=== PATIENT | male | born 1945 | race African-American/Black ===

== ENCOUNTER 2018-07-10 12:18 | Outpatient (CLI) | payer MEDICARE, MEDICAID ==
--- NOTE | 2018-07-10 13:59 | RAD ---
TWO VIEWS OF THE CHEST: DATE: 07/10/2018. COMPARISON: None. HISTORY: Diaphoresis. FINDINGS: There is no pneumothorax or pleural fluid. There is no focal consolidation or alveolar edema. Heart and mediastinal contours appear unremarkable. Mild nonspecific perihilar interstitial prominence no galindo. IMPRESSION: No focal consolidation or alveolar edema. POS: [facility]
== END 2018-07-10 12:19 | disposition home or self-care (01) ==
LOC: BICRAD 12:18
PROVIDERS: ATTEND Specialist
DX: J44.0 Chronic obstructive pulmonary disease with (acute) lower respiratory infection (principal)
CPT/HCPCS: 71046

== ENCOUNTER 2022-04-25 14:55 | Inpatient (IN) | payer OTHER ==
[2022-04-25 15:17] LABS: #Lymphocytes 1.3 thou/uL (1.20-3.40); #Monocytes 1.2 thou/uL (0.11-0.59); #Neutrophils 7.1 thou/uL (1.40-6.50); %Basophils 0.1 % (0.0-1.0); %Eosinophils 0.3 % (0.0-10.0); %Lymphocytes 13.9 % (21.0-51.0); %Neutrophils 73.7 % (42.0-75.0); Hemoglobin 12.7 g/dL (14.0-18.0); Mean Corpuscular HGB CONC 34.3 g/dL (32.0-36.0); Mean Corpuscular Hemoglobin 32.8 pg (27.0-31.0); Mean Corpuscular Volume 95.7 fL (78.0-98.0); Mean Platelet Volume 7.1 fL (7.4-10.4); Platelet Count 257 thou/uL (130-400); RBC Distribution Width 11.8 % (11.5-14.5); Red Blood Cell (RBC) Count 3.87 mill/uL (4.70-6.10); White Blood Cell (WBC) Count 9.6 thou/uL (4.8-10.8)
[2022-04-25 16:33] LABS: Albumin 4.1 g/dL (3.4-4.8)
[2022-04-25 16:34] LABS: Chloride 95 mmol/L (98-107); Potassium 3.1 mmol/L (3.5-5.1)
[2022-04-25 16:35] LABS: Calcium 9.1 mg/dL (7.8-10.44); Sodium 129 mmol/L (136-145)
[2022-04-25 16:36] LABS: Globulin 3.1 g/dL (2.4-3.5); Protein, Total 7.2 g/dL (5.8-8.1)
[2022-04-25 16:37] LABS: Anion Gap 16 mmol/L (10-20); Carbon Dioxide 21 mmol/L (23-31)
[2022-04-25 16:38] LABS: Bilirubin, Total 1.4 mg/dL (0.2-1.2)
[2022-04-25 16:39] LABS: Alkaline Phosphatase 66 U/L (40-110)
[2022-04-25 16:40] LABS: BUN (Urea Nitrogen) 11 mg/dL (8.4-25.7); Calc. Creatinine Clearance 0 mL/min (70-130); Estimated GFR 44
[2022-04-25 16:41] LABS: AST (SGOT) 23 U/L (5-34)
[2022-04-25 16:42] LABS: ALT (SGPT) 10 U/L (8-55)
[2022-04-25 16:52] LABS: Glucose 47 mg/dL (83-110)
[2022-04-25] MEDS ORDERED: Dextrose 50% Abboject 50 ML SYRINGE ONE (16:59)
[2022-04-25 19:09] LABS: Bilirubin Negative (Negative); Blood, Urine Negative (Negative); Clarity Clear (Clear); Glucose, Urine (Dipstick) 150 mg/dL (Negative); Ketone, Urine Negative (Negative); Leukocyte Negative Leu/uL (Negative); Nitrite Negative (Negative); Protein, Urine (Dipstick) Negative (Neg-Trace); Specific Gravity, Urine 1.009 (1.002-1.036); Urobilinogen Normal mg/dL (Less than 2); pH, Urine 5.5 (5.0-9.0)
[2022-04-25 23:13] VITALS: BMI 27.5
[2022-04-26] MEDS ORDERED: Dextrose 5% in Water 1,000 ML IV SCH (00:15)
[2022-04-26] MEDS ORDERED: Dextrose 5% in Water 1,000 ML IV PRN (06:30)
[2022-04-26] MEDS ORDERED: Dextrose 50% Abboject 50 ML SYRINGE IVP PRN (06:30)
[2022-04-26] MEDS ORDERED: Insulin Regular 300 UNITS/3 ML VIAL SC PRN ×2 (06:30)
[2022-04-26] MEDS ORDERED: Insulin Regular 300 UNITS/3 ML VIAL ONE (06:36)
[2022-04-26] MEDS ORDERED: Ondansetron PF 4 MG/2 ML Vial IVP PRN (08:10)
[2022-04-26 08:25] LABS: #Eosinphils 0.2 thou/uL (0.0-0.7); #Lymphocytes 1.1 thou/uL (1.20-3.40); #Monocytes 1.2 thou/uL (0.11-0.59); #Neutrophils 6.3 thou/uL (1.40-6.50); %Basophils 0.2 % (0.0-1.0); %Eosinophils 2.4 % (0.0-10.0); %Monocytes 13.1 % (0.0-10.0); %Neutrophils 71.4 % (42.0-75.0); Hemoglobin 12.2 g/dL (14.0-18.0); Mean Corpuscular HGB CONC 33.6 g/dL (32.0-36.0); Mean Corpuscular Hemoglobin 32.5 pg (27.0-31.0); Mean Corpuscular Volume 96.8 fL (78.0-98.0); Mean Platelet Volume 6.8 fL (7.4-10.4); Platelet Count 225 thou/uL (130-400); RBC Distribution Width 11.6 % (11.5-14.5); Red Blood Cell (RBC) Count 3.76 mill/uL (4.70-6.10); White Blood Cell (WBC) Count 8.8 thou/uL (4.8-10.8)
[2022-04-26 08:45] LABS: Anion Gap 13 mmol/L (10-20); BUN (Urea Nitrogen) 10 mg/dL (8.4-25.7); Calc. Creatinine Clearance 59 mL/min (70-130); Carbon Dioxide 25 mmol/L (23-31); Chloride 95 mmol/L (98-107); Estimated GFR 57; Glucose 164 mg/dL (83-110); Potassium 3.2 mmol/L (3.5-5.1); Sodium 130 mmol/L (136-145)
[2022-04-26] MEDS: D5 0.9% NS w/ 20 mEq KCl 1,000 ML IV SCH ×3 (09:06→21:08)
[2022-04-26] MEDS ORDERED: Iopamidol 370 76% 100 ML VIAL ONE (13:56)
[2022-04-26] MEDS ORDERED: Acetaminophen 325 MG TAB PO PRN (15:44)
[2022-04-26 18:36] LABS: Hemoglobin A1c 4.6 % (4.0-6.0)
[2022-04-27 06:01] LABS: #Eosinphils 0.2 thou/uL (0.0-0.7); #Lymphocytes 1.3 thou/uL (1.20-3.40); #Neutrophils 6.1 thou/uL (1.40-6.50); %Basophils 0.3 % (0.0-1.0); %Eosinophils 2.8 % (0.0-10.0); %Lymphocytes 14.9 % (21.0-51.0); %Monocytes 11.9 % (0.0-10.0); %Neutrophils 70.1 % (42.0-75.0); Hemoglobin 11.4 g/dL (14.0-18.0); Mean Corpuscular HGB CONC 33.2 g/dL (32.0-36.0); Mean Corpuscular Hemoglobin 32.7 pg (27.0-31.0); Mean Corpuscular Volume 98.3 fL (78.0-98.0); Mean Platelet Volume 7.4 fL (7.4-10.4); Platelet Count 233 thou/uL (130-400); RBC Distribution Width 11.6 % (11.5-14.5); Red Blood Cell (RBC) Count 3.48 mill/uL (4.70-6.10); White Blood Cell (WBC) Count 8.6 thou/uL (4.8-10.8)
[2022-04-27 06:23] LABS: Anion Gap 11 mmol/L (10-20); BUN (Urea Nitrogen) 6 mg/dL (8.4-25.7); Calc. Creatinine Clearance 68 mL/min (70-130); Calcium 8.5 mg/dL (7.8-10.44); Carbon Dioxide 25 mmol/L (23-31); Chloride 105 mmol/L (98-107); Estimated GFR 67; Glucose 145 mg/dL (83-110); Potassium 3.5 mmol/L (3.5-5.1); Sodium 137 mmol/L (136-145)
[2022-04-27] MEDS: D5 0.9% NS w/ 20 mEq KCl 1,000 ML IV SCH ×3 (11:17→23:07)
[2022-04-28 12:03] VITALS: BP 137/86; TEMP 98.4
[2022-04-28] MEDS: D5 0.9% NS w/ 20 mEq KCl 1,000 ML IV SCH (12:13)
== END 2022-04-28 13:40 | disposition home or self-care (01) | DRG 178 ==
LOC: ERS 14:55 → MSONC 20:39 → OBSVTOIN 04-26 08:22 → SURG B 04-28 01:37
PROVIDERS: ADMIT Specialist; ATTEND Specialist
PROC: 8E0ZXY6 Isolation (ICD-10-PCS; principal; 2022-04-26)
DX: U07.1 COVID-19 (principal); E87.1 Hypo-osmolality and hyponatremia; E78.5 Hyperlipidemia, unspecified; Z21 Asymptomatic human immunodeficiency virus [HIV] infection status; I10 Essential (primary) hypertension; E11.9 Type 2 diabetes mellitus without complications; F41.9 Anxiety disorder, unspecified; N40.0 Benign prostatic hyperplasia without lower urinary tract symptoms; E11.649 Type 2 diabetes mellitus with hypoglycemia without coma; N40.1 Benign prostatic hyperplasia with lower urinary tract symptoms; R33.8 Other retention of urine; N31.9 Neuromuscular dysfunction of bladder, unspecified; K63.89 Other specified diseases of intestine; N28.9 Disorder of kidney and ureter, unspecified; Z28.21 Immunization not carried out because of patient refusal
CPT/HCPCS: 36415; 36416; 70450; 71045; 74176; 74177; 80048; 80053; 81003; 83036; 84484; 85025; 93005; 96374; 96376; G0378; J1815; J3480; J7070; J7999; Q9967; U0003; U0005

== ENCOUNTER 2022-06-12 11:31 | Inpatient (IN) | payer OTHER ==
[2022-06-12 12:47] LABS: #Eosinphils 0.1 thou/uL (0.0-0.7); #Lymphocytes 1.1 thou/uL (1.20-3.40); #Monocytes 0.7 thou/uL (0.11-0.59); #Neutrophils 5.8 thou/uL (1.40-6.50); %Basophils 0.1 % (0.0-1.0); %Lymphocytes 14.4 % (21.0-51.0); %Monocytes 8.5 % (0.0-10.0); Hemoglobin 12.2 g/dL (14.0-18.0); Mean Corpuscular HGB CONC 31.5 g/dL (32.0-36.0); Mean Corpuscular Hemoglobin 31.1 pg (27.0-31.0); Mean Corpuscular Volume 98.7 fL (78.0-98.0); Mean Platelet Volume 7.4 fL (7.4-10.4); Platelet Count 257 thou/uL (130-400); Red Blood Cell (RBC) Count 3.93 mill/uL (4.70-6.10); White Blood Cell (WBC) Count 7.7 thou/uL (4.8-10.8)
[2022-06-12 13:07] LABS: ALT (SGPT) Less than 7 U/L (8-55); AST (SGOT) 10 U/L (5-34); Albumin 3.7 g/dL (3.4-4.8); Alkaline Phosphatase 80 U/L (40-110); Anion Gap 13 mmol/L (10-20); BUN (Urea Nitrogen) 9 mg/dL (8.4-25.7); Bilirubin, Total 0.7 mg/dL (0.2-1.2); Calc. Creatinine Clearance 0 mL/min (70-130); Calcium 9.5 mg/dL (7.8-10.44); Carbon Dioxide 27 mmol/L (23-31); Estimated GFR 39; Globulin 3.9 g/dL (2.4-3.5); Glucose 106 mg/dL (83-110); Potassium 4.6 mmol/L (3.5-5.1); Protein, Total 7.6 g/dL (5.8-8.1)
[2022-06-12 13:25] LABS: Chloride 104 mmol/L (98-107); Sodium 139 mmol/L (136-145)
[2022-06-12] MEDS ORDERED: Magnevist 469MG/ML 20 ML VIAL ONE (15:03)
[2022-06-12 17:22] LABS: Bacteria/HPF 1+ HPF (None Seen); Bilirubin Negative (Negative); Blood, Urine Trace (Negative); Clarity Turbid (Clear); Glucose, Urine (Dipstick) Normal (Negative); Ketone, Urine 10 mg/dL (Negative); Leukocyte 250 Leu/uL (Negative); Nitrite 1+ (Negative); Protein, Urine (Dipstick) Negative (Neg-Trace); RBC/HPF 0-3 HPF (0-3); Squamous Epithelial 0-3 HPF (0-3); Urobilinogen Normal mg/dL (Less than 2)
[2022-06-12] MEDS ORDERED: Dextrose 50% Abboject 50 ML SYRINGE IVP PRN (18:30)
[2022-06-12] MEDS ORDERED: Insulin Regular 300 UNITS/3 ML VIAL SC PRN (18:30)
[2022-06-12] MEDS ORDERED: Dextrose 5% in Water 1,000 ML IV PRN (18:30)
[2022-06-12] MEDS: Terazosin HCl 5 MG CAP PO SCH (21:38)
[2022-06-12] MEDS: busPIRone HCl 10 MG TAB PO SCH (21:38)
[2022-06-12] MEDS: Sodium Chloride 0.9% 1,000 ML IV SCH (21:38)
[2022-06-12] MEDS: cefTRIAXone\\ROCEPHIN 2 GM in Sodium Chloride 0.9% 100 ML IVPB SCH (21:38)
[2022-06-12] MEDS: Rosuvastatin 20 MG TAB PO SCH (21:38)
[2022-06-13] MEDS: Sodium Chloride 0.9% 1,000 ML IV SCH ×4 (02:11→21:11)
[2022-06-13 07:23] LABS: #Eosinphils 0.2 thou/uL (0.0-0.7); #Lymphocytes 1.2 thou/uL (1.20-3.40); #Monocytes 0.8 thou/uL (0.11-0.59); %Basophils 0.5 % (0.0-1.0); %Eosinophils 3.7 % (0.0-10.0); %Lymphocytes 18.9 % (21.0-51.0); %Monocytes 12.2 % (0.0-10.0); %Neutrophils 64.8 % (42.0-75.0); Mean Corpuscular HGB CONC 31.6 g/dL (32.0-36.0); Mean Corpuscular Hemoglobin 30.8 pg (27.0-31.0); Mean Corpuscular Volume 97.6 fL (78.0-98.0); Mean Platelet Volume 7.2 fL (7.4-10.4); Platelet Count 225 thou/uL (130-400); Red Blood Cell (RBC) Count 3.57 mill/uL (4.70-6.10); White Blood Cell (WBC) Count 6.2 thou/uL (4.8-10.8)
[2022-06-13 07:28] LABS: Anion Gap 12 mmol/L (10-20); BUN (Urea Nitrogen) 9 mg/dL (8.4-25.7); Calc. Creatinine Clearance 60 mL/min (70-130); Calcium 8.8 mg/dL (7.8-10.44); Carbon Dioxide 22 mmol/L (23-31); Chloride 107 mmol/L (98-107); Estimated GFR 61; Glucose 87 mg/dL (83-110); Sodium 137 mmol/L (136-145)
[2022-06-13] MEDS ORDERED: Glimepiride 2 MG TAB PO SCH (07:30)
[2022-06-13] MEDS: busPIRone HCl 10 MG TAB PO SCH ×3 (08:41→21:10)
[2022-06-13] MEDS: Tamsulosin HCl 0.4 MG CAP PO SCH (08:41)
[2022-06-13 13:17] VITALS: BMI 26.2
[2022-06-13] MEDS ORDERED: FINERENONE 10 MG PO SCH (16:00)
[2022-06-13] MEDS ORDERED: BIKTARVY PO SCH (16:00)
[2022-06-13] MEDS: cefTRIAXone\\ROCEPHIN 2 GM in Sodium Chloride 0.9% 100 ML IVPB SCH (17:33)
[2022-06-13] MEDS: Terazosin HCl 5 MG CAP PO SCH (21:10)
[2022-06-13] MEDS: Rosuvastatin 20 MG TAB PO SCH (21:10)
[2022-06-13] MEDS: Acetaminophen 325 MG TAB PO PRN (21:15)
[2022-06-14 04:30] LABS: #Eosinphils 0.3 thou/uL (0.0-0.7); #Lymphocytes 2.2 thou/uL (1.20-3.40); #Monocytes 0.8 thou/uL (0.11-0.59); #Neutrophils 2.9 thou/uL (1.40-6.50); %Basophils 0.5 % (0.0-1.0); %Eosinophils 4.8 % (0.0-10.0); %Lymphocytes 35.7 % (21.0-51.0); %Monocytes 12.6 % (0.0-10.0); %Neutrophils 46.3 % (42.0-75.0); Hemoglobin 10.6 g/dL (14.0-18.0); Mean Corpuscular HGB CONC 32.7 g/dL (32.0-36.0); Mean Corpuscular Volume 97.9 fL (78.0-98.0); Mean Platelet Volume 7.5 fL (7.4-10.4); Platelet Count 234 thou/uL (130-400); Red Blood Cell (RBC) Count 3.33 mill/uL (4.70-6.10); White Blood Cell (WBC) Count 6.2 thou/uL (4.8-10.8)
[2022-06-14 05:26] LABS: Anion Gap 11 mmol/L (10-20); BUN (Urea Nitrogen) 8 mg/dL (8.4-25.7); Calc. Creatinine Clearance 57 mL/min (70-130); Calcium 8.5 mg/dL (7.8-10.44); Carbon Dioxide 24 mmol/L (23-31); Chloride 109 mmol/L (98-107); Estimated GFR 58; Glucose 87 mg/dL (83-110); Iron 38 ug/dL (65-175); Potassium 3.9 mmol/L (3.5-5.1); Sodium 140 mmol/L (136-145)
[2022-06-14] MEDS: FINERENONE 10 MG PO SCH (08:02)
[2022-06-14] MEDS: Tamsulosin HCl 0.4 MG CAP PO SCH (08:03)
[2022-06-14] MEDS: busPIRone HCl 10 MG TAB PO SCH ×3 (08:03→20:06)
[2022-06-14] MEDS: BIKTARVY PO SCH (08:03)
[2022-06-14] MEDS: Iron Polysaccharides Complex 150 MG CAP PO SCH (09:12)
[2022-06-14] MEDS: Sodium Chloride 0.9% 1,000 ML IV SCH ×3 (09:59→20:06)
[2022-06-14] MEDS: cefTRIAXone\\ROCEPHIN 2 GM in Sodium Chloride 0.9% 100 ML IVPB SCH (17:34)
[2022-06-14] MEDS: Terazosin HCl 5 MG CAP PO SCH (20:05)
[2022-06-14] MEDS: Rosuvastatin 20 MG TAB PO SCH (20:05)
[2022-06-14] MEDS: Acetaminophen 325 MG TAB PO PRN (20:06)
[2022-06-15] MEDS: busPIRone HCl 10 MG TAB PO SCH ×3 (08:29→20:40)
[2022-06-15] MEDS: Iron Polysaccharides Complex 150 MG CAP PO SCH (08:29)
[2022-06-15] MEDS: Tamsulosin HCl 0.4 MG CAP PO SCH (08:29)
[2022-06-15] MEDS: FINERENONE 10 MG PO SCH (08:32)
[2022-06-15] MEDS: BIKTARVY PO SCH (08:32)
[2022-06-15] MEDS ORDERED: FLU VACC QS2022-23(65YR UP)/PF 240 MCG/0.7 ML SYRINGE IM ONE (09:00)
[2022-06-15] MEDS: Sodium Chloride 0.9% 1,000 ML IV SCH ×3 (09:52→22:56)
[2022-06-15 20:36] VITALS: BP 162/87; TEMP 97.6
[2022-06-15] MEDS: Terazosin HCl 5 MG CAP PO SCH (20:41)
[2022-06-15] MEDS: Rosuvastatin 20 MG TAB PO SCH (20:41)
[2022-06-16] MEDS: Sodium Chloride 0.9% 1,000 ML IV SCH (02:06)
[2022-06-16] MEDS: Iron Polysaccharides Complex 150 MG CAP PO SCH (08:00)
[2022-06-16] MEDS: busPIRone HCl 10 MG TAB PO SCH (09:23)
[2022-06-16] MEDS: Tamsulosin HCl 0.4 MG CAP PO SCH (09:24)
[2022-06-16] MEDS: BIKTARVY PO SCH (09:25)
[2022-06-16] MEDS: FINERENONE 10 MG PO SCH (09:25)
== END 2022-06-16 11:05 | disposition home or self-care (01) | DRG 689 ==
LOC: ERS 11:31 → ERHOLD 15:46 → T4-B 19:52
PROVIDERS: ADMIT Specialist; ATTEND Specialist
DX: N39.0 Urinary tract infection, site not specified (principal); G93.41 Metabolic encephalopathy; N17.9 Acute kidney failure, unspecified; Z20.822 Contact with and (suspected) exposure to COVID-19; N40.0 Benign prostatic hyperplasia without lower urinary tract symptoms; E11.9 Type 2 diabetes mellitus without complications; E78.00 Pure hypercholesterolemia, unspecified; F41.9 Anxiety disorder, unspecified; I10 Essential (primary) hypertension; Z21 Asymptomatic human immunodeficiency virus [HIV] infection status; E86.0 Dehydration; Z79.84 Long term (current) use of oral hypoglycemic drugs; Z79.899 Other long term (current) drug therapy; Z91.14 Patient's other noncompliance with medication regimen
CPT/HCPCS: 36415; 36416; 70450; 70553; 80048; 80053; 81003; 81015; 82274; 82607; 83036; 83540; 84484; 85025; 87040; 87077; 87086; 87186; 93005; A9579; J0696; J3490; J7050; U0003; U0005

== ENCOUNTER 2022-06-21 19:30 | Inpatient (IN) | payer OTHER ==
[2022-06-21] MEDS ORDERED: CEFAZOLIN 2 GM VIAL ONE (20:34)
[2022-06-21] MEDS ORDERED: Octreotide Acetate 500 MCG/ML VIAL ONE (20:34)
[2022-06-21] MEDS ORDERED: Dextrose 50% Abboject 50 ML SYRINGE ONE (20:45)
[2022-06-21 21:26] LABS: Actual Bicarbonate (HCO3v) 25 mEq/L (22-28); Analyzer IN Cardio ER; Base Excess -1.3 mEq/L (-2.0 to +3.0); Calcium, Ionized (venous) 1.18 mmol/L (1.16-1.32); Chloride (VBG) 102 mmol/L (98-106); Hemoglobin (Hb) 11.8 g/dL (12.6-17.4); Potassium (VBG) 3.44 mmol/L (3.70-5.30); Sodium 134.3 mmol/L (133-146); pH (venous) 7.33 (7.32-7.43)
[2022-06-21 21:30] LABS: #Lymphocytes 0.7 thou/uL (1.20-3.40); #Monocytes 0.6 thou/uL (0.11-0.59); #Neutrophils 7.3 thou/uL (1.40-6.50); %Basophils 0.2 % (0.0-1.0); %Eosinophils 0.4 % (0.0-10.0); %Lymphocytes 7.7 % (21.0-51.0); %Monocytes 7.4 % (0.0-10.0); %Neutrophils 84.3 % (42.0-75.0); Hemoglobin 10.7 g/dL (14.0-18.0); Mean Corpuscular HGB CONC 32.5 g/dL (32.0-36.0); Mean Corpuscular Hemoglobin 31.7 pg (27.0-31.0); Mean Corpuscular Volume 97.4 fl (78.0-98.0); Mean Platelet Volume 7.6 fL (7.4-10.4); Platelet Count 215 thou/uL (130-400); RBC Distribution Width 12.3 % (11.5-14.5); Red Blood Cell (RBC) Count 3.38 mill/uL (4.70-6.10); White Blood Cell (WBC) Count 8.7 thou/uL (4.8-10.8)
[2022-06-21 21:48] LABS: ALT (SGPT) 8 U/L (8-55); AST (SGOT) 9 U/L (5-34); Albumin 3.3 g/dL (3.4-4.8); Alkaline Phosphatase 65 U/L (40-110); Anion Gap 12 mmol/L (10-20); BUN (Urea Nitrogen) 9 mg/dL (8.4-25.7); Bilirubin, Total 0.4 mg/dL (0.2-1.2); Calc. Creatinine Clearance 0 mL/min (70-130); Calcium 8.9 mg/dL (7.8-10.44); Carbon Dioxide 25 mmol/L (23-31); Chloride 103 mmol/L (98-107); Estimated GFR 40; Globulin 3.2 g/dL (2.4-3.5); Glucose 225 mg/dL (83-110); Potassium 3.6 mmol/L (3.5-5.1); Protein, Total 6.5 g/dL (5.8-8.1); Sodium 136 mmol/L (136-145)
[2022-06-21 22:09] LABS: Bilirubin Negative (Negative); Blood, Urine 3+ (Negative); Clarity Clear (Clear); Glucose, Urine (Dipstick) 70 mg/dL (Negative); Ketone, Urine Negative (Negative); Leukocyte 250 Leu/uL (Negative); Nitrite Negative (Negative); Protein, Urine (Dipstick) Negative (Neg-Trace); RBC/HPF 21-50 HPF (0-3); Specific Gravity, Urine 1.007 (1.002-1.036); Squamous Epithelial None Seen HPF (0-3); Urobilinogen Normal mg/dL (Less than 2); WBC/HPF 21-50 HPF (0-3); pH, Urine 6.5 (5.0-9.0)
[2022-06-21 22:10] LABS: Bacteria/HPF 1+ HPF (None Seen)
[2022-06-22] MEDS ORDERED: Ondansetron ODT 4 MG TAB SL PRN (00:30)
[2022-06-22] MEDS ORDERED: Ondansetron PF 4 MG/2 ML Vial IVP PRN (00:30)
[2022-06-22] MEDS ORDERED: Acetaminophen 325 MG TAB PO PRN (00:30)
[2022-06-22] MEDS ORDERED: Dextrose 50% Abboject 50 ML SYRINGE SLOW IVP PRN (00:45)
[2022-06-22 00:49] VITALS: BMI 24.8
[2022-06-22] MEDS: Dextrose 10% in Water 1,000 ML IV SCH ×2 (01:02→09:19)
[2022-06-22 09:56] LABS: Anion Gap 11 mmol/L (10-20); BUN (Urea Nitrogen) 7 mg/dL (8.4-25.7); Calc. Creatinine Clearance 53 mL/min (70-130); Calcium 9.2 mg/dL (7.8-10.44); Carbon Dioxide 26 mmol/L (23-31); Chloride 105 mmol/L (98-107); Estimated GFR 57; Glucose 114 mg/dL (83-110); Potassium 3.7 mmol/L (3.5-5.1); Sodium 138 mmol/L (136-145)
[2022-06-22] MEDS: Sodium Chloride 0.9% 1,000 ML IV SCH (12:36)
[2022-06-23] MEDS: Sodium Chloride 0.9% 1,000 ML IV SCH ×2 (04:20→17:39)
[2022-06-23 06:52] LABS: #Eosinphils 0.2 thou/uL (0.0-0.7); #Lymphocytes 2.1 thou/uL (1.20-3.40); #Monocytes 0.8 thou/uL (0.11-0.59); #Neutrophils 3.7 thou/uL (1.40-6.50); %Basophils 0.1 % (0.0-1.0); %Eosinophils 2.5 % (0.0-10.0); %Monocytes 11.2 % (0.0-10.0); Hemoglobin 10.9 g/dL (14.0-18.0); Mean Corpuscular HGB CONC 30.9 g/dL (32.0-36.0); Mean Corpuscular Volume 97.1 fl (78.0-98.0); Mean Platelet Volume 7.8 fL (7.4-10.4); Platelet Count 261 thou/uL (130-400); RBC Distribution Width 12.4 % (11.5-14.5); Red Blood Cell (RBC) Count 3.63 mill/uL (4.70-6.10); White Blood Cell (WBC) Count 6.7 thou/uL (4.8-10.8)
[2022-06-23 07:07] LABS: Anion Gap 10 mmol/L (10-20); BUN (Urea Nitrogen) 7 mg/dL (8.4-25.7); Calc. Creatinine Clearance 62 mL/min (70-130); Calcium 9.1 mg/dL (7.8-10.44); Carbon Dioxide 25 mmol/L (23-31); Chloride 106 mmol/L (98-107); Estimated GFR 68; Glucose 90 mg/dL (83-110); Potassium 3.8 mmol/L (3.5-5.1); Sodium 137 mmol/L (136-145)
[2022-06-23] MEDS ORDERED: Iron Polysaccharides Complex 150 MG CAP PO SCH (08:00)
[2022-06-23] MEDS ORDERED: Polyethylene Glycol 3350 17 GM Packet PO PRN (12:54)
[2022-06-23 19:48] VITALS: BP 97/66; TEMP 97.7
[2022-06-25] MEDS ORDERED: FLU VACC QS2022-23(65YR UP)/PF 240 MCG/0.7 ML SYRINGE IM ONE (09:00)
== END 2022-06-23 18:51 | disposition home health service (06) | DRG 637 ==
LOC: ERS 19:30 → 2SW 23:14 → T4-A 06-22 14:49 → OBSVTOIN 06-23 15:42
PROVIDERS: ADMIT Specialist; ATTEND Family Medicine
DX: E11.649 Type 2 diabetes mellitus with hypoglycemia without coma (principal); G93.41 Metabolic encephalopathy; N39.0 Urinary tract infection, site not specified; N17.9 Acute kidney failure, unspecified; Z21 Asymptomatic human immunodeficiency virus [HIV] infection status; F03.90 Unspecified dementia, unspecified severity, without behavioral disturbance, psychotic disturbance, mood disturbance, and anxiety; I10 Essential (primary) hypertension; E78.5 Hyperlipidemia, unspecified; F41.9 Anxiety disorder, unspecified; N40.0 Benign prostatic hyperplasia without lower urinary tract symptoms; E86.0 Dehydration; D50.9 Iron deficiency anemia, unspecified; Z91.14 Patient's other noncompliance with medication regimen
CPT/HCPCS: 36415; 36416; 70450; 71045; 80048; 80053; 81003; 81015; 82805; 83605; 84484; 85025; 87040; 87086; 93005; 96361; 96365; 96366; 96367; 96372; 96375; G0378; J2354; J7050; J7999; U0003; U0005

== ENCOUNTER 2023-08-10 09:19 | Emergency (ER) | payer OTHER | END 2023-08-10 09:48 | disposition home or self-care (01) | LOC: ERS 09:19 | DX: M26.601 Right temporomandibular joint disorder, unspecified (principal); I10 Essential (primary) hypertension; E11.9 Type 2 diabetes mellitus without complications | CPT/HCPCS: 99283 ==

== ENCOUNTER 2023-09-22 10:08 | Emergency (ER) | payer OTHER ==
[2023-09-22 11:30] LABS: #Eosinphils 0.2 thou/uL (0.0-0.7); #Monocytes 0.9 thou/uL (0.11-0.59); #Neutrophils 3.4 thou/uL (1.40-6.50); %Basophils 0.2 % (0.0-1.0); %Eosinophils 3.3 % (0.0-10.0); %Lymphocytes 31.3 % (21.0-51.0); %Monocytes 13.2 % (0.0-10.0); %Neutrophils 51.7 % (42.0-75.0); Hematocrit 41.6 % (42.0-52.0); Hemoglobin 13.6 g/dL (14.0-18.0); Mean Corpuscular HGB CONC 32.7 g/dL (32.0-36.0); Mean Corpuscular Hemoglobin 31.2 pg (27.0-31.0); Mean Corpuscular Volume 95.4 fl (78.0-98.0); Platelet Count 194 10x3/uL (130-400); Red Blood Cell (RBC) Count 4.36 mill/uL (4.70-6.10); White Blood Cell (WBC) Count 6.5 10x3/uL (4.8-10.8)
[2023-09-22 11:49] LABS: ALT (SGPT) 14 U/L (8-55); AST (SGOT) 17 U/L (5-34); Alkaline Phosphatase 77 U/L (40-110); Anion Gap 13 mmol/L (10-20); BUN (Urea Nitrogen) 15 mg/dL (8.4-25.7); Bilirubin, Total 0.9 mg/dL (0.2-1.2); Calc. Creatinine Clearance 0 mL/min (70-130); Calcium 9.4 mg/dL (7.8-10.44); Carbon Dioxide 25 mmol/L (23-31); Chloride 107 mmol/L (98-107); Estimated GFR 40; Globulin 3.4 g/dL (2.4-3.5); Glucose 88 mg/dL (83-110); Lipase 11 U/L (8-78); Potassium 3.9 mmol/L (3.5-5.1); Protein, Total 7.4 g/dL (5.8-8.1); Sodium 141 mmol/L (136-145)
== END 2023-09-22 13:21 | disposition home or self-care (01) ==
LOC: ERS 10:08
DX: R19.7 Diarrhea, unspecified (principal); E11.9 Type 2 diabetes mellitus without complications; I10 Essential (primary) hypertension
CPT/HCPCS: 36415; 80053; 83690; 85025; 99284

== ENCOUNTER 2024-01-15 09:23 | Outpatient (CLI) | payer OTHER | END 2024-01-15 09:24 | disposition home or self-care (01) | LOC: BICRAD 09:23 | PROVIDERS: ATTEND Specialist | DX: R63.4 Abnormal weight loss (principal) | CPT/HCPCS: 71046 ==

== ENCOUNTER 2024-01-18 15:54 | Emergency (ER) | payer OTHER ==
[2024-01-18] MEDS ORDERED: Acetaminophen 500 MG TAB ONE (16:47)
== END 2024-01-18 16:57 | disposition home or self-care (01) ==
LOC: ERS 15:54
DX: M53.3 Sacrococcygeal disorders, not elsewhere classified (principal); E11.9 Type 2 diabetes mellitus without complications; I10 Essential (primary) hypertension
CPT/HCPCS: 72100

== ENCOUNTER 2025-04-13 08:11 | Day surgery (SDC) | payer OTHER, MEDICAID ==
[2025-04-13 08:37] LABS: #Basophils Less than 0.03 10x3/uL (0.0-0.2); #Eosinophils 0.16 10x3/uL (0.0-0.7); #Monocytes 0.65 10x3/uL (0.11-0.59); #Neutrophils 3.50 10x3/uL (1.40-6.50); %Basophils 0.3 % (0.0-1.0); %Eosinophils 2.3 % (0.0-10.0); %Lymphocytes 38.6 % (21.0-51.0); %Monocytes 9.2 % (0.0-10.0); %Neutrophils 49.3 % (42.0-75.0); Hematocrit 41.5 % (42.0-52.0); Hemoglobin 13.2 g/dL (14.0-18.0); Mean Corpuscular Hemoglobin 30.8 pg (27.0-31.0); Mean Corpuscular Volume 96.7 fL (78.0-98.0); Platelet Count 195 10x3/uL (130-400); Red Blood Cell (RBC) Count 4.29 mill/uL (4.70-6.10); White Blood Cell (WBC) Count 7.09 10x3/uL (4.8-10.8)
[2025-04-13 08:52] LABS: INR-International Normal Ratio 1.1; Prothrombin Time 14.6 sec (12.0-14.7)
[2025-04-13 08:53] LABS: PTT 30.0 sec (22.9-36.1)
[2025-04-13] MEDS ORDERED: LevoFLOXacin 250 mg/D5W 250 MG in Premix 1 BAG IVPB SCH (10:00)
[2025-04-13] MEDS ORDERED: Sodium Bicarbonate 2.5 MEQ/5 ML SDV ONE (10:10)
[2025-04-13] MEDS ORDERED: Lidocaine 1% PF 5 ML VIAL ONE (10:10)
[2025-04-13] MEDS ORDERED: Lidocaine 2% 6 ML (Jelly) SYR ONE (10:30)
== END 2025-04-13 12:45 | disposition home or self-care (01) ==
LOC: CT 08:11
PROVIDERS: ATTEND Urology
PROC: 0T9B30Z Drainage of Bladder with Drainage Device, Percutaneous Approach (ICD-10-PCS; principal; 2025-04-13)
DX: N40.1 Benign prostatic hyperplasia with lower urinary tract symptoms (principal); R33.8 Other retention of urine; E11.22 Type 2 diabetes mellitus with diabetic chronic kidney disease; N18.9 Chronic kidney disease, unspecified; F32.9 Major depressive disorder, single episode, unspecified; Z21 Asymptomatic human immunodeficiency virus [HIV] infection status; Z79.899 Other long term (current) drug therapy
CPT/HCPCS: 36000; 51102; 77002; 77012; 85025; 85610; 85730; J1956; 36415; J3010

== ENCOUNTER 2025-05-23 14:32 | Emergency (ER) | payer OTHER, MEDICAID ==
[2025-05-23 15:05] LABS: #Basophils 0.04 10x3/uL (0.0-0.2); #Eosinophils 0.35 10x3/uL (0.0-0.7); #Monocytes 0.65 10x3/uL (0.11-0.59); #Neutrophils 2.53 10x3/uL (1.40-6.50); %Basophils 0.7 % (0.0-1.0); %Eosinophils 5.8 % (0.0-10.0); %Lymphocytes 40.4 % (21.0-51.0); %Monocytes 10.8 % (0.0-10.0); %Neutrophils 42.1 % (42.0-75.0); Hematocrit 41.3 % (42.0-52.0); Hemoglobin 13.4 g/dL (14.0-18.0); Mean Corpuscular Hemoglobin 30.7 pg (27.0-31.0); Mean Corpuscular Volume 94.7 fL (78.0-98.0); Platelet Count 207 10x3/uL (130-400); Red Blood Cell (RBC) Count 4.36 mill/uL (4.70-6.10); White Blood Cell (WBC) Count 6.01 10x3/uL (4.8-10.8)
[2025-05-23 15:21] LABS: ALT (SGPT) Less than 7 U/L (Less than 45); AST (SGOT) 17 U/L (11-34); Albumin 3.5 g/dL (3.1-4.5); Alkaline Phosphatase 73 U/L (40-110); Anion Gap 16 mmol/L (10-20); BUN (Urea Nitrogen) 12 mg/dL (8.4-25.7); Bilirubin, Total 0.7 mg/dL (0.3-1.2); Calc. Creatinine Clearance 0 mL/min (70-130); Calcium 9.1 mg/dL (7.8-10.44); Carbon Dioxide 24 mmol/L (23-31); Chloride 108 mmol/L (98-107); Globulin 3.6 g/dL (2.4-3.5); Glucose 102 mg/dL (83-110); Potassium 4.0 mmol/L (3.5-5.1); Sodium 144 mmol/L (136-145)
[2025-05-23 16:46] LABS: CAUTI Indications for Culture Dysuria,urgency,freq; Glucose, Urine (Dipstick) Normal (Negative); Leukocyte 500 Leu/uL (Negative); Protein, Urine (Dipstick) Negative (Neg-Trace); RBC/HPF 0-3 HPF (0-3); Specific Gravity, Urine 1.005 (1.002-1.036); Yeast-Budding 2+ HPF (None Seen)
[2025-05-23 16:55] LABS: Bacteria/HPF 2+ HPF (None Seen); Yeast-Hyphae 1+ HPF (None Seen)
[2025-05-23 16:56] LABS: Urine Culture Reflex No No
[2025-05-23] MEDS ORDERED: cefTRIAXone (ROCEPHIN) 1 GM VIAL ONE (17:26)
== END 2025-05-23 17:57 | disposition home or self-care (01) ==
LOC: ERS 14:32
DX: N39.0 Urinary tract infection, site not specified (principal); B20 Human immunodeficiency virus [HIV] disease; E78.00 Pure hypercholesterolemia, unspecified; I10 Essential (primary) hypertension; Z79.899 Other long term (current) drug therapy
CPT/HCPCS: 71045; 80053; 81001; 84484; 85025; J0696; 96365

== ENCOUNTER 2025-06-11 23:22 | Emergency (ER) | payer OTHER, MEDICAID ==
[2025-06-12 12:39] LABS: %Lymphocytes 33.1 % (21.0-51.0); %Monocytes 13.0 % (0.0-10.0); %Neutrophils 49.9 % (42.0-75.0); ALT (SGPT) 9 U/L (Less than 45); AST (SGOT) 19 U/L (11-34); Albumin 3.7 g/dL (3.1-4.5); Alkaline Phosphatase 69 U/L (40-110); Anion Gap 11 mmol/L (10-20); BUN (Urea Nitrogen) 17 mg/dL (8.4-25.7); Bilirubin, Total 0.5 mg/dL (0.3-1.2); Calc. Creatinine Clearance 0 mL/min (70-130); Calcium 9.2 mg/dL (7.8-10.44); Carbon Dioxide 28 mmol/L (23-31); Chloride 105 mmol/L (98-107); Globulin 3.6 g/dL (2.4-3.5); Glucose 105 mg/dL (83-110); Hematocrit 39.5 % (42.0-52.0); Hemoglobin 13.3 g/dL (14.0-18.0); Mean Corpuscular Hemoglobin 31.2 pg (27.0-31.0); Mean Corpuscular Volume 92.7 fL (78.0-98.0); Platelet Count 194 10x3/uL (130-400); Potassium 3.9 mmol/L (3.5-5.1); Red Blood Cell (RBC) Count 4.26 mill/uL (4.70-6.10); Sodium 140 mmol/L (136-145); White Blood Cell (WBC) Count 6.92 10x3/uL (4.8-10.8)
[2025-06-12 12:40] LABS: #Basophils 0.02 10x3/uL (0.0-0.2); #Eosinophils 0.25 10x3/uL (0.0-0.7); #Monocytes 0.90 10x3/uL (0.11-0.59); #Neutrophils 3.45 10x3/uL (1.40-6.50); %Basophils 0.3 % (0.0-1.0); %Eosinophils 3.6 % (0.0-10.0)
== END 2025-06-12 04:18 | disposition home or self-care (01) ==
LOC: ERS 23:22
DX: R19.7 Diarrhea, unspecified (principal); I10 Essential (primary) hypertension
CPT/HCPCS: 80053; 85025; 99284